=== PATIENT | female | born 1945 | race African-American/Black ===

== ENCOUNTER 2018-02-08 10:17 | Outpatient (CLI) | payer MEDICARE | END 2018-02-08 10:18 | disposition home or self-care (01) | LOC: BICMAMMO 10:17 | PROVIDERS: ATTEND Obstetrics & Gynecology | DX: Z12.31 Encounter for screening mammogram for malignant neoplasm of breast (principal); R92.1 Mammographic calcification found on diagnostic imaging of breast; Z80.3 Family history of malignant neoplasm of breast | CPT/HCPCS: 77063; 77067 ==

== ENCOUNTER 2018-04-08 10:01 | Outpatient (CLI) | payer MEDICARE | END 2018-04-08 10:02 | disposition home or self-care (01) | LOC: DTY/OP 10:01 | PROVIDERS: ATTEND Family Medicine | DX: E11.9 Type 2 diabetes mellitus without complications (principal) | CPT/HCPCS: 97802 ==

== ENCOUNTER 2018-05-26 13:43 | Outpatient (CLI) | payer MEDICARE, OTHER ==
--- NOTE | 2018-05-26 16:14 | BD ---
Exam: DEXA Bone Density 05/26/18 HISTORY: Postmenopausal screening for osteoporosis. FINDINGS: Lumbar Spine: BMD (g/cm2) T-Score: Z-Score: L1 1.341 3.2 5.3 L2 1.386 3.3 5.6 L3 1.385 2.7 5.2 L4 1.378 2.9 5.4 L1-L4 1.373 3.0 5.3 Femoral Neck: 0.707 -1.3 0.8 Total Femur: 0.912 0.2 1.5 The ten year fracture risk for a major osteoporotic fracture is 21% and for hip fracture is 9.3%. Impression: Osteopenia. POS: [facility]
== END 2018-05-26 13:44 | disposition home or self-care (01) ==
LOC: BICMAMMO 13:43
PROVIDERS: ATTEND Student in an Organized Health Care Education/Training Program
DX: Z13.820 Encounter for screening for osteoporosis (principal); M85.859 Other specified disorders of bone density and structure, unspecified thigh
CPT/HCPCS: 77080

== ENCOUNTER 2018-06-16 19:30 | Outpatient (CLI) | payer MEDICARE | END 2018-06-16 19:31 | disposition home or self-care (01) | LOC: SLEEPLAB 19:30 | PROVIDERS: ATTEND Student in an Organized Health Care Education/Training Program | DX: G47.33 Obstructive sleep apnea (adult) (pediatric) (principal) | CPT/HCPCS: 95811 ==

== ENCOUNTER 2023-04-10 18:26 | Emergency (ER) | payer OTHER | END 2023-04-10 19:58 | disposition home or self-care (01) | LOC: ERS 18:26 | DX: M19.042 Primary osteoarthritis, left hand (principal); M19.041 Primary osteoarthritis, right hand; M17.0 Bilateral primary osteoarthritis of knee; M16.0 Bilateral primary osteoarthritis of hip; I10 Essential (primary) hypertension | CPT/HCPCS: 99283 ==